=== PATIENT | male | born 1935 | race Caucasian/White ===

== ENCOUNTER 2023-10-09 06:23 | Inpatient (IN) | payer MEDICARE, OTHER ==
[2023-10-09] MEDS ORDERED: Sodium Chloride 0.9% 10 ML Syringe FLUSH PRN (07:12)
[2023-10-09] MEDS ORDERED: Sodium Chloride 0.9% 1,000 ML IV ONE (07:12)
[2023-10-09] MEDS ORDERED: Ondansetron 4 MG/2 ML SDV IVPUSH ONE (07:22)
[2023-10-09] MEDS ORDERED: cefTRIAXone 2 GM in Sodium Chloride 0.9% 100 ML IV ONE (07:33)
[2023-10-09] MEDS ORDERED: Piperacillin/Tazobactam 4.5 GM in Sodium Chloride 0.9% 100 ML IV ONE (07:34)
[2023-10-09 07:40] LABS: HEMATOCRIT 46.4 % (42.0-52.0); HEMOGLOBIN 15.2 gm/dl (14.0-18.0); MEAN CORPUSCULAR HEMOGLOBIN 32.1 pg (28.0-32.0); MEAN CORPUSCULAR HGB CONC 32.8 g/dl (32.0-36.0); MEAN CORPUSCULAR VOLUME 97.9 fl (83.0-99.0); MEAN PLATELET VOLUME 10.8 fl (9.4-12.4); PLATELET COUNT,PLT 174 K/mm3 (150-400); RED BLOOD CELL COUNT 4.74 M/mm3 (4.52-5.90); WHITE BLOOD CELL COUNT,WBC 9.11 K/mm3 (3.9-11.3)
[2023-10-09 07:57] LABS: CORONAVIRUS COVID-19 NAA NEGATIVE (NEGATIVE); INFLUENZA A NAA NEGATIVE (NEGATIVE); RESPIRATORY SYNCYTIAL VIR NAA NEGATIVE (NEGATIVE)
[2023-10-09 07:58] LABS: INR 1.1; PROTHROMBIN TIME 11.7 SECONDS (9.7-12.0)
[2023-10-09 08:05] LABS: A/G RATIO 0.9 (1-2); ALANINE AMINOTRANSFERASE,ALT 19 U/L (16-63); ALBUMIN 2.8 g/dl (3.4-5.0); ALKALINE PHOSPHATASE 62 U/L (46-116); ANION GAP 12.9 (5-15); ASPARTATE AMNIOTRANSFERASE,AST 17 U/L (15-37); BILIRUBIN TOTAL 0.9 mg/dL (0.2-1.0); BLOOD UREA NITROGEN,BUN 30 mg/dL (7-18); C-REACTIVE PROTEIN <0.2 mg/dL (<1.0); CALCIUM 8.6 mg/dL (8.5-10.1); CARBON DIOXIDE,CO2 23 mEq/L (21-32); CHLORIDE,CL 106 mEq/L (98-107); CREATININE 1.5 mg/dL (0.7-1.3); EST CRCL DRUG DOSING (CG) 35.82 mL/min; ESTIMATED GFR 45 mL/min (>60); GLUCOSE RANDOM 117 mg/dL (70-99); POTASSIUM,K 3.9 mEq/L (3.5-5.1); SODIUM,NA 138 mEq/L (136-145); TROPONIN I HIGH SENSITIVITY 16 pg/mL (<=76)
[2023-10-09 08:29] LABS: BAND PERCENT MAN 6 % (0-10); BASOPHILS PERCENT MAN 0 (0.2-1.2); EOSINOPHILS PERCENT MAN 0 % (0.8-7.0); LYMPHOCYTES % ATYPICAL MANUAL 0 %; MONOCYTES PERCENT MAN 3 % (2-10)
[2023-10-09 08:30] LABS: LYMPHOCYTES PERCENT MAN 15 % (20-40); PLATELET COUNT ESTIMATE ADEQUATE
[2023-10-09] MEDS ORDERED: Lidocaine 4% Crm 5 Gm with Transparent Dressing Kit TOP ONE (09:17)
[2023-10-09] MEDS: Lidocaine 4% 1 each Patch TOP PRN (09:37)
[2023-10-09] MEDS ORDERED: Docusate Sodium 100 MG Cap PO PRN (10:47)
[2023-10-09] MEDS ORDERED: Acetaminophen/HYDROcodone 325-5 MG Tab PO PRN (10:47)
[2023-10-09] MEDS ORDERED: Albuterol 0.083% 2.5 MG/3 ML Neb Soln NEB PRN (10:47)
[2023-10-09] MEDS ORDERED: Morphine 2 MG/ML SYRINGE IVPUSH PRN (10:47)
[2023-10-09] MEDS ORDERED: Acetaminophen 325 MG Tab PO PRN (10:47)
[2023-10-09] MEDS ORDERED: Ondansetron 4 MG Tab.DIS PO PRN (10:47)
[2023-10-09] MEDS ORDERED: Lidocaine 4% 1 each Patch TOP PRN (10:52)
[2023-10-09] MEDS ORDERED: Benzonatate 100 MG Cap PO PRN (10:56)
[2023-10-09] MEDS ORDERED: Azithromycin 500 MG in Sodium Chloride 0.9% 250 ML IV SCH (11:00)
[2023-10-09] MEDS ORDERED: cefTRIAXone 1 GM Vial IM SCH (11:00)
[2023-10-09] MEDS: Sodium Chloride 0.9% 1,000 ML IV SCH ×2 (11:31→22:06)
[2023-10-09] MEDS ORDERED: predniSONE 20 MG Tab PO SCH (12:00)
[2023-10-09 12:53] LABS: APPEARANCE,URINE CLEAR (Clear); BILIRUBIN,URINE NEGATIVE (Negative); COLOR,URINE YELLOW (Yellow); GLUCOSE,URINE NEGATIVE (Negative); KETONES,URINE NEGATIVE (Negative); LEUKOCYTE ESTERASE,URINE NEGATIVE (Negative); NITRITE,URINE NEGATIVE (Negative); OCCULT BLOOD,URINE NEGATIVE (Negative); PROTEIN,URINE 1+ (Negative); UROBILINOGEN,URINE 0.2 (0.2-1.0)
[2023-10-09 13:29] LABS: BACTERIA,URINE FEW /hpf (FEW); EPITHELIAL CELLS,URINE 0-5 /hpf (0-5); HYALINE CASTS,URINE 0-5 /lpf (0-5); MUCUS,URINE MODERATE /hpf (FEW); RBC,URINE 0-5 /hpf (0-5); WBC,URINE 0-5 /hpf (0-5)
[2023-10-09] MEDS: Albuterol/Ipratropium 3.0-0.5 MG/3 ML Neb Soln NEB SCH ×2 (14:33→20:33)
[2023-10-09] MEDS: guaiFENesin 600 MG Tab.ER PO SCH (22:04)
[2023-10-09] MEDS: Metoprolol Tartrate 25 MG Tab PO SCH (22:04)
[2023-10-10] MEDS: Albuterol/Ipratropium 3.0-0.5 MG/3 ML Neb Soln NEB SCH ×2 (02:56→08:57)
[2023-10-10 05:49] LABS: HEMATOCRIT 34.8 % (42.0-52.0); MEAN CORPUSCULAR HEMOGLOBIN 32.4 pg (28.0-32.0); MEAN CORPUSCULAR HGB CONC 32.5 g/dl (32.0-36.0); MEAN CORPUSCULAR VOLUME 99.7 fl (83.0-99.0); PLATELET COUNT,PLT 137 K/mm3 (150-400); RED BLOOD CELL COUNT 3.49 M/mm3 (4.52-5.90); WHITE BLOOD CELL COUNT,WBC 13.41 K/mm3 (3.9-11.3)
[2023-10-10 05:51] LABS: HEMOGLOBIN 11.3 gm/dl (14.0-18.0)
[2023-10-10] MEDS ORDERED: Levothyroxine 50 MCG Tab PO SCH (06:00)
[2023-10-10 06:04] LABS: ANION GAP 12.7 (5-15); BUN/CREATININE RATIO 17.9 (14-18); CALCIUM 7.8 mg/dL (8.5-10.1); CREATININE 1.4 mg/dL (0.7-1.3); EST CRCL DRUG DOSING (CG) 38.38 mL/min; MAGNESIUM 1.7 mg/dL (1.8-2.4); PHOSPHORUS 3.3 mg/dL (2.6-4.7); POTASSIUM,K 3.7 mEq/L (3.5-5.1)
[2023-10-10] MEDS ORDERED: cefTRIAXone 1 GM in Sodium Chloride 0.9% 100 ML IV SCH (08:00)
[2023-10-10] MEDS ORDERED: predniSONE 20 MG Tab PO SCH (08:00)
[2023-10-10] MEDS: Metoprolol Tartrate 25 MG Tab PO SCH (08:26)
[2023-10-10] MEDS: guaiFENesin 600 MG Tab.ER PO SCH (08:27)
[2023-10-10 08:30] VITALS: BP 124/53; PULSE 80
[2023-10-10] MEDS: Lidocaine 4% 1 each Patch TOP PRN (08:48)
[2023-10-10] MEDS ORDERED: Rivaroxaban 15 MG Tab PO SCH (09:00)
[2023-10-10] MEDS ORDERED: Cholecalciferol (Vitamin D3) 25 MCG Tab PO SCH (09:00)
[2023-10-10] MEDS ORDERED: amLODIPine 5 MG Tab PO SCH (09:00)
[2023-10-10] MEDS ORDERED: Digoxin 125 MCG Tab PO SCH (09:00)
[2023-10-10] MEDS ORDERED: Cyanocobalamin (Vitamin B12) 1,000 MCG Tab SL SCH (09:00)
[2023-10-10] MEDS ORDERED: Pantoprazole 40 MG Tab.CR PO SCH (09:00)
[2023-10-10] MEDS ORDERED: Non-Formulary Medication 1 Each (Ubidecarenone [Coenzyme Q10] 10 MG Capsule) PO SCH (09:00)
[2023-10-10] MEDS ORDERED: Magnesium Oxide 400 MG Tab PO SCH (09:00)
== END 2023-10-10 11:30 | disposition home or self-care (01) | DRG 193 ==
LOC: JD.ED 06:23 → JD.MS 09:26
PROVIDERS: ADMIT Emergency Medicine; ATTEND Internal Medicine
DX: J18.9 Pneumonia, unspecified organism (principal); R09.02 Hypoxemia; J96.01 Acute respiratory failure with hypoxia; N17.9 Acute kidney failure, unspecified; E03.9 Hypothyroidism, unspecified; Z20.822 Contact with and (suspected) exposure to COVID-19; I10 Essential (primary) hypertension; M94.0 Chondrocostal junction syndrome [Tietze]; E78.00 Pure hypercholesterolemia, unspecified; K21.9 Gastro-esophageal reflux disease without esophagitis; M19.90 Unspecified osteoarthritis, unspecified site; Z99.81 Dependence on supplemental oxygen; Z86.73 Personal history of transient ischemic attack (TIA), and cerebral infarction without residual deficits; Z79.01 Long term (current) use of anticoagulants; Z79.890 Hormone replacement therapy; Z79.899 Other long term (current) drug therapy; Z87.891 Personal history of nicotine dependence; Z97.3 Presence of spectacles and contact lenses; Z11.52 Encounter for screening for COVID-19
CPT/HCPCS: 0241U; 36415; 71045; 80048; 80053; 81001; 83605; 83735; 84100; 84484; 85007; 85027; 85610; 86140; 87040; 93005; 94640; 94760; 96365; 96367; 96375; 99285; 93010; A9270-GY; J0456; J0696; J2405; J2543; J3490; J7030; J7050; J7512; J7620-GY